=== PATIENT | male | born 1960 | race African-American/Black ===

== ENCOUNTER 2016-06-24 10:32 | Emergency (ER) | payer SELFPAY ==
[2016-06-24] MEDS ORDERED: ASPIRIN 81 MG TABLET, CHEWABLE PO ONE (10:50)
--- NOTE | 2016-06-24 10:50 | ER Document Report ---
ED Medical Screen (RME) - General Stated Complaint: NAUSEA/VOMITING Mode of Arrival: Medic Information source: Patient Notes: here via EMS c/o headache, nausea/vomiting x2 days, also endorses cough, lower diaphragm, and muscle aches due to coughing. he states he has chest pain, SOB also. Family members have been sick also. EMS reports fever 100.7, given tylenol 975 mg PO by EMS Hx of HTN, has not had meds in 1 month, without PMD BP by EMS 194/110 Smoker 1 PPD I have greeted and performed a rapid initial assessment of this patient. A comprehensive ED assessment and evaluation of the patient, analysis of test results and completion of the medical decision making process will be conducted by additional ED providers. TRAVEL OUTSIDE OF THE [place] IN LAST 30 DAYS: No - Related Data Allergies/Adverse Reactions: No Known Allergies Allergy (Unverified 04/01/11 08:15) Past Medical History - Past Medical History Cardiac Medical History: Reports: Hx Hypertension Pulmonary Medical History: Reports: Hx Asthma Musculoskeltal Medical History: Reports Hx Arthritis Traumatic Medical History: Reports: Hx Fractures - R leg, R foot Past Surgical History: Denies: Hx Pacemaker - Immunizations Hx Diphtheria, Pertussis, Tetanus Vaccination: Yes Physical Exam - Vital signs Vitals: Temp Pulse Resp BP Pulse Ox 99.1 F 114 H 18 207/112 H 93 06/24/16 10:43 06/24/16 10:43 06/24/16 10:43 06/24/16 10:43 06/24/16 10:43 - Notes Notes: Lungs CTAb CV: tachycardic rate without murmur Course - Vital Signs Vital signs: Temp Pulse Resp BP Pulse Ox 99.1 F 114 H 18 207/112 H 93 06/24/16 10:43 06/24/16 10:43 06/24/16 10:43 06/24/16 10:43 06/24/16 10:43
[2016-06-24] MEDS ORDERED: AMLODIPINE BESYLATE 5 MG TABLET PO ONE (11:30)
[2016-06-24] MEDS ORDERED: NORMAL SALINE 1000 ML 1,000 ML IV ONE ×2 (11:30)
[2016-06-24] MEDS ORDERED: IPRATROPIUM/ALBUTEROL 0.5-2.5 MG/3 ML AMPUL NEB ONE (11:30)
[2016-06-24 12:08] LABS: HEMATOCRIT 41.4 % (37.9-51.0); HGB HCT DIFFERENCE 0.6; MEAN CORPUSCULAR HEMOGLOBIN 28.8 pg (27.0-33.4); MEAN CORPUSCULAR HGB CONC 33.7 g/dL (32.0-36.0); MEAN CORPUSCULAR VOLUME 85 fl (80-97); RED BLOOD COUNT 4.85 10^6/uL (4.35-5.55); RED CELL DISTRIBUTION WIDTH 14.3 % (11.5-14.0); WHITE BLOOD COUNT 3.9 10^3/uL (4.0-10.5)
[2016-06-24 12:30] LABS: ALANINE AMINOTRANSFERASE 28 U/L (21-72); ALKALINE PHOSPHATASE 75 U/L (38-126); ANION GAP 12 (5-19); ASPARTATE AMINO TRANSFERASE 54 U/L (17-59); BILIRUBIN,TOTAL 0.4 mg/dL (0.2-1.3); BLOOD UREA NITROGEN 11 mg/dL (7-20); CALCIUM 9.3 mg/dL (8.4-10.2); CARBON DIOXIDE 25 mmol/L (22-30); CHLORIDE 101 mmol/L (98-107); GLUCOSE 98 mg/dL (75-110); LIPASE 85.9 U/L (23-300); MAGNESIUM 1.6 mg/dL (1.6-2.3); POTASSIUM 3.8 mmol/L (3.6-5.0); SODIUM 137.6 mmol/L (137-145); TOTAL PROTEIN 7.1 g/dL (6.3-8.2)
[2016-06-24 12:39] LABS: ANISOCYTOSIS SLIGHT; BAND NEUTROPHILS % (MANUAL) 1 % (3-5); BASOPHILS % (MANUAL) 0 % (0-2); EOSINOPHILS % (MANUAL) 0 % (0-6); LYMPHOCYTES % (MANUAL) 5 % (13-45); TOTAL CELLS COUNTED 100
[2016-06-24 12:42] LABS: CREATINE KINASE MB 6.06 ng/mL (<4.55)
[2016-06-24 12:45] LABS: TROPONIN I 0.156 ng/mL
[2016-06-24 12:53] LABS: CREATINE KINASE 3872 U/L (55-170)
[2016-06-24] MEDS ORDERED: ENOXAPARIN SODIUM INJ 80 MG/0.8 ML DISP.SYRIN SUBCUT SCH (13:45)
[2016-06-24 13:49] LABS: PROTHROMBIN TIME 14.2 SEC (11.4-15.4)
--- NOTE | 2016-06-24 14:40 | ER Document Report ---
ED General - General Chief Complaint: Pain All Over Stated Complaint: NAUSEA/VOMITING Mode of Arrival: Medic TRAVEL OUTSIDE OF THE [place] IN LAST 30 DAYS: No - HPI Patient complains to provider of: nausea vomiting funny feeling in the chest Notes: Patient coming in with a 2 day history of nausea vomiting 24 hours of a funny feeling in his chest. Patient has a history of hypertension that is uncontrolled noncompliant with medication patient states has not had any medications in the last 2 days. Patient denies any sick contacts patient denies recent antibiotics. Patient states chest pain was substernal no radiation. Patient denies any diarrhea denies any trauma - Related Data Allergies/Adverse Reactions: No Known Allergies Allergy (Verified 06/24/16 10:45) Past Medical History - General Information source: Patient - Social History Smoking Status: Current Every Day Smoker Chew tobacco use (# tins/day): Yes Frequency of alcohol use: None Drug Abuse: None Family History: Reviewed & Not Pertinent Patient has suicidal ideation: No Patient has homicidal ideation: No - Past Medical History Cardiac Medical History: Reports: Hx Hypertension Pulmonary Medical History: Reports: Hx Asthma Renal/ Medical History: Denies: Hx Peritoneal Dialysis Musculoskeltal Medical History: Reports Hx Arthritis Traumatic Medical History: Reports: Hx Fractures - R leg, R foot Surgical Hx: Negative Past Surgical History: Denies: Hx Pacemaker - Immunizations Hx Diphtheria, Pertussis, Tetanus Vaccination: Yes Review of Systems - Review of Systems Constitutional: No symptoms reported EENT: No symptoms reported Cardiovascular: Chest pain Respiratory: No symptoms reported Gastrointestinal: Nausea, Vomiting Genitourinary: No symptoms reported Male Genitourinary: No symptoms reported Musculoskeletal: No symptoms reported Skin: No symptoms reported Hematologic/Lymphatic: No symptoms reported Neurological/Psychological: No symptoms reported -: Yes All other systems reviewed and negative Physical Exam - Vital signs Vitals: Temp Pulse Resp BP Pulse Ox 99.1 F 114 H 18 207/112 H 93 06/24/16 10:43 06/24/16 10:43 06/24/16 10:43 06/24/16 10:43 06/24/16 10:43 Interpretation: Normal - General General appearance: Appears well, Alert - HEENT Head: Normocephalic, Atraumatic Eyes: Normal Pupils: PERRL - Respiratory Respiratory status: No respiratory distress Chest status: Nontender Breath sounds: Normal Chest palpation: Normal - Cardiovascular Rhythm: Regular Heart sounds: Normal auscultation Murmur: No - Abdominal Inspection: Normal Distension: No distension Bowel sounds: Normal Tenderness: Nontender Organomegaly: No organomegaly - Back Back: Normal, Nontender - Extremities General upper extremity: Normal inspection, Nontender, Normal color, Normal ROM , Normal temperature General lower extremity: Normal inspection, Nontender, Normal color, Normal ROM , Normal temperature, Normal weight bearing. No: Jose Enrique's sign - Neurological Neuro grossly intact: Yes Cognition: Normal Orientation: AAOx4 [place] Coma Scale Eye Opening: Spontaneous [place] Coma Scale Verbal: Oriented [place] Coma Scale Motor: Obeys Commands Rina Coma Scale Total: 15 Speech: Normal Motor strength normal: LUE, RUE, LLE, RLE Sensory: Normal - Psychological Associated symptoms: Normal affect, Normal mood - Skin Skin Temperature: Warm Skin Moisture: Dry Skin Color: Normal Course - Re-evaluation Re-evalutation: 06/24/16 14:38 Patient's initial EKG does show some T-wave inversions and ST segment depression and V5 V6 lead 2 and aVF. After amlodipine and IV resuscitation patient's symptoms have improved heart rate has improved T-wave inversions to remain in 5-6 however he has now T-wave flattening in 2 and aVF. I discussed briefly with the hospitalist and our coating machine operator on-call Dr. GARCIA who agrees in transfer and the patient for an STEMI. Patient was given a weight-based dose of Lovenox. I did discuss with Dr. Carnes hospitalist and Dr. Schuster coating machine operator of [facility] and patient was placed on a list for transfer.. Waiting to hear back from [facility] 06/24/16 18:41 Discussed with coating machine operator divided. Patient was also accepted to their facility. Patient otherwise remained stable patient did have another episode chest pain repeat EKG still showed T-wave inversions no acute changes patient will continue with fluid resuscitation hypertension control and monitoring. Patient was given a dose of Lovenox. - Vital Signs Vital signs: Temp Pulse Resp BP Pulse Ox 98.4 F 107 H 23 H 177/101 H 92 06/24/16 13:09 06/24/16 13:09 06/24/16 15:49 06/24/16 15:49 06/24/16 15:01 - Laboratory Result Diagrams: 06/24/16 11:51 06/24/16 11:51 Laboratory results interpreted by me: 06/24/16 06/24/16 06/24/16 11:51 11:51 11:51 WBC 3.9 L RDW 14.3 H Seg Neuts % (Manual) 87 H Band Neutrophils % 1 L Lymphocytes % (Manual) 5 L Abs Lymphs (Manual) 0.3 L APTT Creatinine 1.40 H Est GFR (Non-Af Amer) 52 L Creatine Kinase 3872 H CK-MB (CK-2) 6.06 H Urine Blood 06/24/16 06/24/16 11:51 14:25 WBC RDW Seg Neuts % (Manual) Band Neutrophils % Lymphocytes % (Manual) Abs Lymphs (Manual) APTT 36.0 H Creatinine Est GFR (Non-Af Amer) Creatine Kinase CK-MB (CK-2) Urine Blood MODERATE H Critical Care Note - Critical Care Note Total time excluding time spent on procedures (mins): 35 Comments: Patient evaluated times for chest pain Discharge - Discharge Clinical Impression: NSTEMI (non-ST elevated myocardial infarction), Accelerated hypertension Condition: Good Disposition: [facility]
[2016-06-24] MEDS ORDERED: ENOXAPARIN SODIUM INJ 80 MG/0.8 ML DISP.SYRIN SUBCUT ONE (14:45)
[2016-06-24 15:01] LABS: APPEARANCE,URINE CLEAR; BILIRUBIN,URINE NEGATIVE (NEGATIVE); GLUCOSE, URINE NEGATIVE (NEGATIVE); KETONES,URINE NEGATIVE (NEGATIVE); LEUKOCYTE ESTERASE,URINE NEGATIVE (NEGATIVE); NITRITE,URINE NEGATIVE (NEGATIVE); PROTEIN,URINE NEGATIVE (NEGATIVE); UROBILINOGEN,URINE NEGATIVE mg/dL (<2.0)
[2016-06-24 15:14] LABS: URINE BARBITURATES SCREEN NEGATIVE; URINE METHADONE SCREEN NEGATIVE; URINE OPIATES LOW NEGATIVE; URINE PHENCYCLIDINE SCREEN NEGATIVE
[2016-06-24] MEDS ORDERED: NITROGLYCERIN 2% OINTMENT 1 GM PACKET TP ONE (17:03)
[2016-06-24] MEDS ORDERED: METOPROLOL TARTRATE 25 MG TABLET PO ONE (17:57)
[2016-06-24 19:26] VITALS: BP 198/98
--- NOTE | 2016-06-25 09:05 | EKG REPORT ---
SEVERITY:- ABNORMAL ECG - SINUS TACHYCARDIA REPOL ABNRM SUGGESTS ISCHEMIA, ANT-LAT LEADS : Confirmed by: Silverio Gracia MD 25-Jun-2016 09:05:13
--- NOTE | 2016-06-25 09:06 | EKG REPORT ---
SEVERITY:- ABNORMAL ECG - SINUS TACHYCARDIA LVH WITH SECONDARY REPOLARIZATION ABNORMALITY LA ABNORMALITY : Confirmed by: Silverio Gracia MD 25-Jun-2016 09:05:50
--- NOTE | 2016-06-25 09:07 | EKG REPORT ---
SEVERITY:- ABNORMAL ECG - SINUS TACHYCARDIA PROBABLE LEFT ATRIAL ABNORMALITY LVH WITH SECONDARY REPOLARIZATION ABNORMALITY : Confirmed by: Silverio Gracia MD 25-Jun-2016 09:06:03
== END 2016-06-24 19:03 | disposition short-term general hospital (02) ==
LOC: ER 10:32
DX: I21.4 Non-ST elevation (NSTEMI) myocardial infarction (principal); I10 Essential (primary) hypertension; Z91.14 Patient's other noncompliance with medication regimen; R07.89 Other chest pain; R11.2 Nausea with vomiting, unspecified; F17.200 Nicotine dependence, unspecified, uncomplicated; J45.909 Unspecified asthma, uncomplicated
CPT/HCPCS: 93005; 94640 ×2; 99291; 96372; 96360; 96361; 36415; 82553; 82550; 83690; 83735; 85025; 85610; 85730; 80053; 81001; 84484; 80307; 87804; 71010; 93010; J7030; J1650; J7620

== ENCOUNTER 2018-02-03 15:11 | Emergency (ER) | payer SELFPAY ==
[2018-02-03] MEDS ORDERED: ONDANSETRON 4 MG TAB.RAPDIS PO ONE (15:44)
[2018-02-03] MEDS ORDERED: CLONIDINE HCL 0.2 MG TABLET PO ONE (15:44)
--- NOTE | 2018-02-03 15:45 | ER Document Report ---
ED Medical Screen (RME) - General Chief Complaint: High Blood Pressure Stated Complaint: FEELING UNWELL Time Seen by Provider: 02/03/18 15:43 Mode of Arrival: Wheelchair Information source: Patient TRAVEL OUTSIDE OF THE [place] IN LAST 30 DAYS: No - HPI Patient complains to provider of: elevated BP Onset: Other - pt has been ouot of his BP meds for several months. Feels like his BP is up again - Related Data Allergies/Adverse Reactions: No Known Allergies Allergy (Verified 06/24/16 10:45) Past Medical History - Social History Chew tobacco use (# tins/day): No Frequency of alcohol use: None Drug Abuse: None - Past Medical History Cardiac Medical History: Reports: Hx Hypertension Pulmonary Medical History: Reports: Hx Asthma Renal/ Medical History: Denies: Hx Peritoneal Dialysis Musculoskeltal Medical History: Reports Hx Arthritis Traumatic Medical History: Reports: Hx Fractures - R leg, R foot Past Surgical History: Denies: Hx Pacemaker - Immunizations Hx Diphtheria, Pertussis, Tetanus Vaccination: Yes Physical Exam - Vital signs Vitals: Temp Pulse Resp BP Pulse Ox 98.9 F 76 16 209/118 H 97 02/03/18 15:25 02/03/18 15:25 02/03/18 15:25 02/03/18 15:25 02/03/18 15:25 Course - Vital Signs Vital signs: Temp Pulse Resp BP Pulse Ox 98.9 F 76 16 209/118 H 97 02/03/18 15:25 02/03/18 15:25 02/03/18 15:25 02/03/18 15:25 02/03/18 15:25
[2018-02-03 15:54] LABS: ABSOLUTE EOSINOPHILS # (AUTO) 0.2 10^3/uL (0.0-0.6); ABSOLUTE LYMPHOCYTES (AUTO) 1.5 10^3/uL (0.5-4.7); ABSOLUTE MONOCYTES (AUTO) 0.4 10^3/uL (0.1-1.4); ABSOLUTE NEUT (AUTO) 2.3 10^3/uL (1.7-8.2); BASOPHILS % (AUTO) 0.7 % (0-2); EOSINOPHILS % (AUTO) 5.2 % (0-6); HEMATOCRIT 43.2 % (37.9-51.0); HEMOGLOBIN 14.8 g/dL (13.5-17.0); LYMPHOCYTES % (AUTO) 32.6 % (13-45); MEAN CORPUSCULAR HEMOGLOBIN 29.6 pg (27.0-33.4); MEAN CORPUSCULAR HGB CONC 34.1 g/dL (32.0-36.0); MEAN CORPUSCULAR VOLUME 87 fl (80-97); MONOCYTES % (AUTO) 9.9 % (3-13); PLATELET COUNT 334 10^3/uL (150-450); RED BLOOD COUNT 4.98 10^6/uL (4.35-5.55); RED CELL DISTRIBUTION WIDTH 14.6 % (11.5-14.0); SEGMENTED NEUTROPHILS % (AUTO) 51.6 % (42-78); TOTAL CELLS COUNTED % (AUTO) 100 %; WHITE BLOOD COUNT 4.5 10^3/uL (4.0-10.5)
[2018-02-03 15:59] LABS: ALANINE AMINOTRANSFERASE 19 U/L (21-72); ALBUMIN 3.9 g/dL (3.5-5.0); ALKALINE PHOSPHATASE 88 U/L (38-126); ANION GAP 11 (5-19); ASPARTATE AMINO TRANSFERASE 17 U/L (17-59); BILIRUBIN,DIRECT 0.2 mg/dL (0.0-0.4); BILIRUBIN,TOTAL 0.4 mg/dL (0.2-1.3); BLOOD UREA NITROGEN 10 mg/dL (7-20); CALCIUM 9.3 mg/dL (8.4-10.2); CARBON DIOXIDE 27 mmol/L (22-30); CHLORIDE 102 mmol/L (98-107); GLUCOSE 104 mg/dL (75-110); POTASSIUM 4.4 mmol/L (3.6-5.0); SODIUM 139.6 mmol/L (137-145); TOTAL PROTEIN 7.2 g/dL (6.3-8.2)
--- NOTE | 2018-02-03 17:34 | ER Document Report ---
ED General - General Chief Complaint: High Blood Pressure Stated Complaint: FEELING UNWELL Time Seen by Provider: 02/03/18 15:43 Mode of Arrival: Wheelchair Information source: Patient Notes: 57-year-old male with past medical history including high blood pressure. Patient states he has not taken his blood pressure medications in greater than 3 months. He does not know what these medications were or where he received them. He does not know who his previous primary care physician was. Patient states this morning when he woke up he could not move his right arm or leg. He states he felt lightheaded. He states a mild frontal headache without blurry vision. He denies any neck pain, head trauma, chest pain, nausea, vomiting, or fevers. TRAVEL OUTSIDE OF THE [place] IN LAST 30 DAYS: No - HPI Onset: Other - See above Onset/Duration: Constant Quality of pain: Achy Severity: Moderate Pain Level: Denies Associated symptoms: Other - See above Exacerbated by: Denies Relieved by: Denies Similar symptoms previously: No Recently seen / treated by doctor: No - Related Data Allergies/Adverse Reactions: No Known Allergies Allergy (Verified 06/24/16 10:45) Past Medical History - General Information source: Patient - Social History Smoking Status: Current Every Day Smoker Chew tobacco use (# tins/day): No Frequency of alcohol use: None Drug Abuse: None Family History: Reviewed & Not Pertinent Patient has suicidal ideation: No Patient has homicidal ideation: No - Past Medical History Cardiac Medical History: Reports: Hx Hypertension Pulmonary Medical History: Reports: Hx Asthma Renal/ Medical History: Denies: Hx Peritoneal Dialysis Musculoskeletal Medical History: Reports Hx Arthritis Traumatic Medical History: Reports: Hx Fractures - R leg, R foot Past Surgical History: Denies: Hx Pacemaker - Immunizations Hx Diphtheria, Pertussis, Tetanus Vaccination: Yes Review of Systems - Review of Systems Constitutional: denies: Fever EENT: denies: Eye discharge, Nose discharge Cardiovascular: denies: Chest pain, Palpitations Respiratory: denies: Short of breath Gastrointestinal: denies: Vomiting Genitourinary: denies: Dysuria Musculoskeletal: denies: Leg swelling Skin: Other - no hives. denies: Rash Neurological/Psychological: Other - no slurred speech -: Yes All other systems reviewed and negative Physical Exam - Vital signs Vitals: Temp Pulse Resp BP Pulse Ox 98.9 F 76 16 209/118 H 97 02/03/18 15:25 02/03/18 15:25 02/03/18 15:25 02/03/18 15:25 02/03/18 15:25 Notes: Reviewed vital signs and nursing note as charted by RN. CONSTITUTIONAL: Alert and oriented and responds appropriately to questions. Well -appearing; well-nourished HEAD: Normocephalic; atraumatic EYES: PERRL; Conjunctivae clear, sclerae non-icteric ENT: Normal nose; no rhinorrhea; moist mucous membranes; pharynx without lesions noted NECK: Supple without meningismus; non-tender; no carotid bruits; no cervical lymphadenopathy, no masses CARD: Regular rate and rhythm; no murmurs, no clicks, no rubs, no gallops; symmetric distal pulses RESP: Normal chest excursion without splinting or tachypnea; breath sounds clear and equal bilaterally ABD/GI: Normal bowel sounds; non-distended; soft, non-tender; no palpable organomegaly or masses BACK: The back appears normal and is non-tender to palpation EXT: Normal ROM in all joints; non-tender to palpation; no cyanosis, no effusions, no edema SKIN: Normal color for age and race; warm; dry; good turgor; no acute lesions noted NEURO: CN II through XII are intact. Minimal slurred speech. No facial droop. NIH score is recorded. Patient has some minimal drift of the right arm and is only able to lift his right leg for very minimal amount off the bed PSYCH: The patient's mood and manner are appropriate. Grooming and personal hygiene are appropriate. Course - Re-evaluation Re-evalutation: In triage, patient had basic labs ordered and was given antihypertensive medications. I have added on a stat CT scan of the head, EKG, and a bandage on the troponin. Given the time onset of symptomatology, I do not believe that the patient is a TPA candidate. Initial labs as recorded. 02/03/18 17:53 EKG shows a heart of 68, normal sinus rhythm, normal axis, LVH with inverted T waves in leads I, 2, aVL, V4 through V6. Old EKG from 2017 show similar findings. 02/03/18 18:21 [address] have spoken [address] Pandey the interventional neurologist. He states he would like a CTA and if it does not show a large vessel occlusion, the patient can be admitted to the hospitalist service. - Vital Signs Vital signs: Temp Pulse Resp BP Pulse Ox 98.9 F 67 16 176/88 H 99 02/03/18 15:25 02/03/18 17:58 02/03/18 17:58 02/03/18 17:58 02/03/18 17:58 - Laboratory Result Diagrams: 02/03/18 14:33 02/03/18 14:33 Laboratory results interpreted by me: 02/03/18 02/03/18 14:33 14:33 RDW 14.6 H ALT 19 L Critical Care Note - Critical Care Note Total time excluding time spent on procedures (mins): 45 Discharge - Discharge Clinical Impression: Right sided weakness, Hypertensive emergency Condition: Serious
--- NOTE | 2018-02-03 17:49 | RADIOLOGY REPORT (SQ) ---
EXAM DESCRIPTION: CT HEAD WITHOUT COMPLETED DATE/TIME: 02/03/2018 5:38 pm REASON FOR STUDY: Right sided weakness headache COMPARISON: 04/24/2012 TECHNIQUE: Axial images acquired through the brain without intravenous contrast. Images reviewed wi th bone, brain and subdural windows. Images stored on PACS. All CT scanners at this facility use dose modulation, iterative reconstruction, and/or weight based d osing when appropriate to reduce radiation dose to as low as reasonably achievable (ALARA). [facility]: Dose Right [facility]: CareDose [facility]: Dose Right [facility]: Teradose 4D [facility]: Smart Tryouts RADIATION DOSE: CT Rad equipment meets quality standard of care and radiation dose reduction techniq ues were employed. CTDIvol: 53.2 mGy. DLP: 1017 mGy-cm. mGy. LIMITATIONS: None. FINDINGS: VENTRICLES: Age-appropriate. CEREBRUM: No masses. No hemorrhage. No midline shift. Areas of low density in the white matter mos t likely due to chronic micro-vascular ischemic change. No evidence for acute infarction. CEREBELLUM: No masses. No hemorrhage. No alteration of density. No evidence for acute infarction. EXTRAAXIAL SPACES: Mild age-related involutional change. No fluid collections. No masses. ORBITS AND GLOBE: No intra- or extraconal masses. Normal contour of globe without masses. CALVARIUM: No fracture. PARANASAL SINUSES: No fluid or mucosal thickening. SOFT TISSUES: No mass or hematoma. OTHER: No other significant finding. IMPRESSION: No acute intracranial findings. EVIDENCE OF ACUTE STROKE: NO. TECHNICAL DOCUMENTATION: JOB ID: [id number] [place]-72 Quality ID # 436: Final reports with documentation of one or more dose reduction techniques (e.g., Au tomated exposure control, adjustment of the mA and/or kV according to patient size, use of iterative reconstruction technique) 2010 [employer]- All Rights Reserved Reading location - IP/workstation name: [email or web address]
[2018-02-03] MEDS ORDERED: ASPIRIN 325 MG TABLET PO ONE (18:21)
--- NOTE | 2018-02-03 20:06 | RADIOLOGY REPORT (SQ) ---
EXAM DESCRIPTION: CTA HEAD COMPLETED DATE/TIME: 02/03/2018 7:29 pm REASON FOR STUDY: 12, eval right sided weakness COMPARISON: None. TECHNIQUE: Post IV contrast scanning, thin section axial imaging through the brain to evaluate the a rterial structures. Source and MIP images are saved and reviewed on PACS. Advanced 3D imaging as volume-rendering, MIPs, SSD performed? yes All CT scanners at this facility use dose modulation, iterative reconstruction, and/or weight based d osing when appropriate to reduce radiation dose to as low as reasonably achievable (ALARA). [facility]: Dose Right [facility]: CareDose [facility]: Dose Right [facility]: Teradose 4D [facility]: Resonergy CONTRAST TYPE AND DOSE: contrast/concentration: Isovue 350.00 mg/ml; Total Contrast Delivered: 70.0 ml; Total Saline Delivered: 75.0 ml RENAL FUNCTION: GFR > 60. LIMITATIONS: None. FINDINGS: [place]: The anterior, middle, posterior cerebral arteries are all patent. No ev idence of aneurysm. Absent right A1 segment. POSTERIOR CIRCULATION: The distal vertebral arteries are patent as is the basilar artery. Right samir nant vertebrobasilar system. No aneurysm. BRAIN: No gross enhancing lesions as visualized. The superior cerebral hemispheres are not included in the field of view. BONES: Intact as visualized. SINUSES: Scattered mucosal thickening. OTHER: No other significant finding. IMPRESSION: The anterior, middle, posterior cerebral arteries are all patent. No evidence of aneury sm. Absent right A1 segment.The distal vertebral arteries are patent as is the basilar artery. Righ t dominant vertebrobasilar system. TECHNICAL DOCUMENTATION: JOB ID: [id number] [place]-72 Quality ID # 436: Final reports with documentation of one or more dose reduction techniques (e.g., Au tomated exposure control, adjustment of the mA and/or kV according to patient size, use of iterative reconstruction technique) 2010 [employer]- All Rights Reserved Reading location - IP/workstation name: [email or web address]
--- NOTE | 2018-02-03 20:07 | RADIOLOGY REPORT (SQ) ---
EXAM DESCRIPTION: CTA NECK COMPLETED DATE/TIME: 02/03/2018 7:29 pm REASON FOR STUDY: 14; right sided weakness COMPARISON: None. TECHNIQUE: Axial dynamic scanning technique with dynamic contrast enhancement through the extra-cinder crane operator nial carotid and vertebral arteries. Multiplanar reconstruction. 3-D MIPS and Volume-rendered imag es acquired at the workstation and saved to PACS. Images are reviewed in soft tissue, bone, lung w indows. All CT scanners at this facility use dose modulation, iterative reconstruction, and/or weight based d osing when appropriate to reduce radiation dose to as low as reasonably achievable (ALARA). [facility]: Dose Right [facility]: CareDose [facility]: Dose Right [facility]: Teradose 4D [facility]: [employer]rape CONTRAST TYPE AND DOSE: 100 mL Omnipaque 350- low osmolar. RENAL FUNCTION: GFR > 60. LIMITATIONS: None. FINDINGS: AORTIC ARCH: Normal three-vessel origin. Bilateral subclavian arteries are patent. No d issection. RIGHT CAROTIDS: Patent common, internal and external carotid arteries without suggestion of significa nt stenosis or irregular plaque. No dissection. RIGHT VERTEBRAL: Patent. No dissection. LEFT CAROTIDS: Patent common, internal and external carotid arteries without suggestion of significan t stenosis or irregular plaque. No dissection. LEFT VERTEBRAL: Patent. No dissection. OTHER: No other significant finding. OTHER: 3-D reconstructions confirm findings. IMPRESSION: No dissection or significant stenosis. COMMENT: Quality ID #[id number]: Measurements of distal internal carotid diameter were used as the denomina tor for stenosis measurement. TECHNICAL DOCUMENTATION: JOB ID: [id number] [place]-72 Quality ID # 436: Final reports with documentation of one or more dose reduction techniques (e.g., Au tomated exposure control, adjustment of the mA and/or kV according to patient size, use of iterative reconstruction technique) 2010 [employer]- All Rights Reserved Reading location - IP/workstation name: [email or web address]
--- NOTE | 2018-02-03 22:37 | EKG REPORT ---
SEVERITY:- ABNORMAL ECG - SINUS RHYTHM ATRIAL PREMATURE COMPLEX FIRST DEGREE AV BLOCK LVH WITH SECONDARY REPOLARIZATION ABNORMALITY : Confirmed by: Tricia Velez MD 03-Feb-2018 22:36:49
[2018-02-04 00:03] VITALS: BP 166/111
== END 2018-02-04 | disposition short-term general hospital (02) ==
LOC: ER 15:11
DX: I16.1 Hypertensive emergency (principal); I11.9 Hypertensive heart disease without heart failure; T50.906A Underdosing of unspecified drugs, medicaments and biological substances, initial encounter; Z91.128 Patient's intentional underdosing of medication regimen for other reason; Z91.14 Patient's other noncompliance with medication regimen; R53.1 Weakness; R47.81 Slurred speech; R51 Headache; R42 Dizziness and giddiness; J45.909 Unspecified asthma, uncomplicated; F17.200 Nicotine dependence, unspecified, uncomplicated
CPT/HCPCS: 93005; 99291; 36415; 85025; 80053; 84484; 70450; 70496; 70498; 93010; S0119

== ENCOUNTER → 2018-11-10 | Outpatient (CLI) | payer MEDICAID ==
--- NOTE | 2018-11-10 12:47 | RADIOLOGY REPORT (SQ) ---
EXAM DESCRIPTION: U/S LTD DUPLEX ART/CHARISSA FLOW COMPLETED DATE/TIME: 11/10/2018 11:15 am REASON FOR STUDY: ESSENTIAL HTN I16.0 HYPERTENSIVE URGENCY COMPARISON: None. TECHNIQUE: Realtime and static grayscale images acquired. Selected color Doppler, velocities and spe ctral images recorded. LIMITATIONS: Unable to visualize the renal artery origins off the aorta reliably FINDINGS: RIGHT KIDNEY: RENAL ARTERY VELOCITIES: At the hilum, 147 cm/sec. Segmental artery velocity 53 cm/sec. RENAL VEIN: Color doppler flow present, patent. VELOCITY RATIO: 0.8. Blunted systolic peak of the spectral waveforms. Proximal right renal artery s tenosis could not be excluded. Consider follow-up MRA or CTA of the renal arteries KIDNEY: 10.5 cm in length with 2.6 cm upper pole cortical cyst. Mild increased echogenicity. No c ortical thinning. No hydronephrosis LEFT KIDNEY: RENAL ARTERY VELOCITIES: Off the aorta 73 cm/sec. Segmental artery velocity 67 cm/sec. RENAL VEIN: Color doppler flow present, patent. VELOCITY RATIO: 0.5. Normal waveforms. KIDNEY: 10.4 cm in length with a 1 cm cyst upper pole kidney, 2 cm cyst left mid pole kidney. Mild increased echogenicity. No cortical thinning. No hydronephrosis. BLADDER: Normal. OTHER: No other significant finding. IMPRESSION: Limited visualization of the right proximal renal artery. There is some blunting of the systolic peak on spectral tracings within the right renal artery at the hilum and segmental right re nal arteries. Renal artery stenosis more proximally may be present. Follow-up MRA or CTA is recomme nded No gross sonographic evidence for left renal artery stenosis COMMENT: NORMAL RENAL ARTERY/AORTA VELOCITY RATIO IS LESS THAN OR EQUAL TO 3.5. TECHNICAL DOCUMENTATION: JOB ID: [id number] [employer]- All Rights Reserved Reading location - IP/workstation name: [email or web address]
== END ==
LOC: RAD 09:57
PROVIDERS: ATTEND Internal Medicine Cardiovascular Disease
DX: I16.0 Hypertensive urgency (principal)
CPT/HCPCS: 93976

== ENCOUNTER → 2019-02-15 | Outpatient (CLI) | payer MEDICAID ==
[2019-02-15 12:21] LABS: ALBUMIN 4.5 g/dL (3.5-5.0); ALKALINE PHOSPHATASE 100 U/L (38-126); ANION GAP 11 (5-19); ASPARTATE AMINO TRANSFERASE 20 U/L (17-59); BILIRUBIN,DIRECT 0.2 mg/dL (0.0-0.4); BILIRUBIN,TOTAL 0.4 mg/dL (0.2-1.3); BLOOD UREA NITROGEN 13 mg/dL (7-20); CALCIUM 10.1 mg/dL (8.4-10.2); CARBON DIOXIDE 30 mmol/L (22-30); CHLORIDE 100 mmol/L (98-107); CHOLESTEROL 144.04 mg/dL (0-200); GLUCOSE 125 mg/dL (75-110); TOTAL PROTEIN 8.3 g/dL (6.3-8.2); TRIGLYCERIDES 116 mg/dL (<150)
[2019-02-15 12:31] LABS: DIRECT LDL 98 mg/dL (<100)
[2019-02-15 17:04] LABS: HEMATOCRIT 48.4 % (37.9-51.0); HEMOGLOBIN 16.3 g/dL (13.5-17.0); MEAN CORPUSCULAR HEMOGLOBIN 29.1 pg (27.0-33.4); MEAN CORPUSCULAR HGB CONC 33.7 g/dL (32.0-36.0); MEAN CORPUSCULAR VOLUME 87 fl (80-97); PLATELET COUNT 335 10^3/uL (150-450); RED CELL DISTRIBUTION WIDTH 14.7 % (11.5-14.0)
== END ==
LOC: OD 11:27
PROVIDERS: ATTEND Physician Assistant
DX: I10 Essential (primary) hypertension (principal); R07.9 Chest pain, unspecified
CPT/HCPCS: 36415; 80048; 80061; 80076; 83735; 85025; 85027

== ENCOUNTER 2019-03-06 14:08 | Emergency (ER) | payer MEDICAID ==
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
[2019-03-06 15:23] LABS: ABSOLUTE EOSINOPHILS # (AUTO) 0.2 10^3/uL (0.0-0.6); ABSOLUTE LYMPHOCYTES (AUTO) 1.1 10^3/uL (0.5-4.7); ABSOLUTE MONOCYTES (AUTO) 0.2 10^3/uL (0.1-1.4); ABSOLUTE NEUT (AUTO) 5.4 10^3/uL (1.7-8.2); BASOPHILS % (AUTO) 0.6 % (0-2); EOSINOPHILS % (AUTO) 2.2 % (0-6); HEMATOCRIT 44.3 % (37.9-51.0); HEMOGLOBIN 15.2 g/dL (13.5-17.0); LYMPHOCYTES % (AUTO) 16.1 % (13-45); MEAN CORPUSCULAR HEMOGLOBIN 29.8 pg (27.0-33.4); MEAN CORPUSCULAR HGB CONC 34.2 g/dL (32.0-36.0); MEAN CORPUSCULAR VOLUME 87 fl (80-97); PLATELET COUNT 409 10^3/uL (150-450); RED BLOOD COUNT 5.09 10^6/uL (4.35-5.55); RED CELL DISTRIBUTION WIDTH 14.6 % (11.5-14.0); SEGMENTED NEUTROPHILS % (AUTO) 78.1 % (42-78); TOTAL CELLS COUNTED % (AUTO) 100 %
[2019-03-06 15:42] LABS: APPEARANCE,URINE CLEAR; BILIRUBIN,URINE NEGATIVE (NEGATIVE); COLOR,URINE YELLOW; GLUCOSE, URINE NEGATIVE (NEGATIVE); KETONES,URINE NEGATIVE (NEGATIVE); LEUKOCYTE ESTERASE,URINE NEGATIVE (NEGATIVE); NITRITE,URINE NEGATIVE (NEGATIVE); PROTEIN,URINE 30 mg/dL (NEGATIVE); URINE SPECIFIC GRAVITY 1.017
[2019-03-06 15:49] LABS: ALBUMIN 4.4 g/dL (3.5-5.0); ALKALINE PHOSPHATASE 130 U/L (38-126); ANION GAP 10 (5-19); ASPARTATE AMINO TRANSFERASE 24 U/L (17-59); BILIRUBIN,DIRECT 0.2 mg/dL (0.0-0.4); BILIRUBIN,TOTAL 0.4 mg/dL (0.2-1.3); BLOOD UREA NITROGEN 15 mg/dL (7-20); CALCIUM 9.7 mg/dL (8.4-10.2); CARBON DIOXIDE 28 mmol/L (22-30); CHLORIDE 102 mmol/L (98-107); CREATINE KINASE 347 U/L (55-170); GLUCOSE 106 mg/dL (75-110); POTASSIUM 3.9 mmol/L (3.6-5.0); TOTAL PROTEIN 8.7 g/dL (6.3-8.2)
--- NOTE | 2019-03-06 15:59 | RADIOLOGY REPORT (SQ) ---
EXAM DESCRIPTION: CHEST SINGLE VIEW COMPLETED DATE/TIME: 03/06/2019 3:29 pm REASON FOR STUDY: bed 2 db COMPARISON: AP view of the chest from 06/19/2011. EXAM PARAMETERS: NUMBER OF VIEWS: One view. TECHNIQUE: Single frontal radiographic view of the chest acquired. RADIATION DOSE: NA LIMITATIONS: None. FINDINGS: LUNGS AND PLEURA: No consolidation, pleural effusion or pneumothorax. MEDIASTINUM AND HILAR STRUCTURES: No mediastinal hilar contour abnormality. HEART AND VASCULAR STRUCTURES: The cardiac silhouette and pulmonary vasculature are within normal cota its. BONES: No acute findings. HARDWARE: None in the chest. OTHER: No other finding. IMPRESSION: No acute cardiopulmonary process. TECHNICAL DOCUMENTATION: JOB ID: [id number] [employer]- All Rights Reserved Reading location - IP/workstation name: [email or web address]
[2019-03-06 16:01] LABS: CREATINE KINASE MB 2.65 ng/mL (<4.55); TROPONIN I 0.026 ng/mL
[2019-03-06] MEDS ORDERED: METHYLPREDNISOLONE INJ 125 MG/2 ML SDV IV ONE (16:07)
[2019-03-06] MEDS ORDERED: IPRATROPIUM/ALBUTEROL 0.5-2.5 MG/3 ML AMPUL NEB ONE (16:07)
--- NOTE | 2019-03-06 16:16 | EKG REPORT ---
SEVERITY:- ABNORMAL ECG - SINUS RHYTHM VENTRICULAR PREMATURE COMPLEX FIRST DEGREE AV BLOCK REPOL ABNRM SUGGESTS ISCHEMIA, LATERAL LEADS : Confirmed by: Tricia Velez MD 06-Mar-2019 16:15:43
[2019-03-06] MEDS ORDERED: NORMAL SALINE 1000 ML 1,000 ML IV ONE (16:42)
[2019-03-06] MEDS ORDERED: FAMOTIDINE INJ/PF 20 MG/2 ML SDV IV ONE (16:44)
[2019-03-06] MEDS ORDERED: DIPHENHYDRAMINE HCL 50 MG/ML VIAL IV ONE (16:44)
[2019-03-06] MEDS ORDERED: HYDRALAZINE HCL INJ/PF 20 MG/1 ML SDV IV ONE (17:01)
[2019-03-06] MEDS ORDERED: HYDRALAZINE HCL 10 MG TABLET PO ONE (17:42)
[2019-03-06 18:02] VITALS: BP 182/107
== END 2019-03-06 18:10 | disposition left against medical advice (07) ==
LOC: ER 14:08
DX: R06.03 Acute respiratory distress (principal); R05 Cough; T65.891A Toxic effect of other specified substances, accidental (unintentional), initial encounter; Y92.009 Unspecified place in unspecified non-institutional (private) residence as the place of occurrence of the external cause; F17.210 Nicotine dependence, cigarettes, uncomplicated; I10 Essential (primary) hypertension
CPT/HCPCS: 93005; 36415; 82553; 82550; 85025; 80053; 81001; 84484; 71045; 93010; J3490; J2930; J7620

== ENCOUNTER 2019-09-06 01:21 | Emergency (ER) | payer MEDICAID ==
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
[2019-09-06 01:46] LABS: APPEARANCE,URINE CLEAR; BILIRUBIN,URINE NEGATIVE (NEGATIVE); COLOR,URINE COLORLESS; GLUCOSE, URINE NEGATIVE (NEGATIVE); KETONES,URINE NEGATIVE (NEGATIVE); PROTEIN,URINE NEGATIVE (NEGATIVE); URINE SPECIFIC GRAVITY 1.001; UROBILINOGEN,URINE NEGATIVE mg/dL (<2.0)
[2019-09-06 01:53] LABS: ABSOLUTE BASOPHILS # (AUTO) 0.1 10^3/uL (0.0-0.2); ABSOLUTE EOSINOPHILS # (AUTO) 0.4 10^3/uL (0.0-0.6); ABSOLUTE LYMPHOCYTES (AUTO) 1.4 10^3/uL (0.5-4.7); ABSOLUTE MONOCYTES (AUTO) 0.4 10^3/uL (0.1-1.4); ABSOLUTE NEUT (AUTO) 3.4 10^3/uL (1.7-8.2); ALKALINE PHOSPHATASE 117 U/L (38-126); ANION GAP 6 (5-19); ASPARTATE AMINO TRANSFERASE 18 U/L (17-59); BASOPHILS % (AUTO) 1.1 % (0-2); BILIRUBIN,TOTAL 0.3 mg/dL (0.2-1.3); BLOOD UREA NITROGEN 10 mg/dL (7-20); CALCIUM 9.3 mg/dL (8.4-10.2); CARBON DIOXIDE 28 mmol/L (22-30); CHLORIDE 101 mmol/L (98-107); CREATINE KINASE 181 U/L (55-170); EOSINOPHILS % (AUTO) 6.4 % (0-6); GLUCOSE 112 mg/dL (75-110); HEMATOCRIT 41.8 % (37.9-51.0); HEMOGLOBIN 14.7 g/dL (13.5-17.0); LYMPHOCYTES % (AUTO) 24.9 % (13-45); MEAN CORPUSCULAR HEMOGLOBIN 30.1 pg (27.0-33.4); MEAN CORPUSCULAR HGB CONC 35.1 g/dL (32.0-36.0); MEAN CORPUSCULAR VOLUME 86 fl (80-97); MONOCYTES % (AUTO) 6.9 % (3-13); PLATELET COUNT 314 10^3/uL (150-450); POTASSIUM 3.8 mmol/L (3.6-5.0); RED BLOOD COUNT 4.87 10^6/uL (4.35-5.55); RED CELL DISTRIBUTION WIDTH 14.6 % (11.5-14.0); SEGMENTED NEUTROPHILS % (AUTO) 60.7 % (42-78); TOTAL CELLS COUNTED % (AUTO) 100 %; TOTAL PROTEIN 7.2 g/dL (6.3-8.2); WHITE BLOOD COUNT 5.6 10^3/uL (4.0-10.5)
[2019-09-06 02:03] LABS: URINE AMPHETAMINES SCREEN NEGATIVE; URINE BARBITURATES SCREEN NEGATIVE; URINE BENZODIAZEPINES SCREEN NEGATIVE; URINE COCAINE SCREEN NEGATIVE; URINE MARIJUANA (THC) SCREEN NEGATIVE; URINE METHADONE SCREEN NEGATIVE; URINE PHENCYCLIDINE SCREEN NEGATIVE
[2019-09-06 02:17] LABS: CREATINE KINASE MB 2.06 ng/mL (<4.55)
[2019-09-06 02:19] LABS: TROPONIN I 0.05 ng/mL
--- NOTE | 2019-09-06 02:34 | RADIOLOGY REPORT (SQ) ---
EXAM DESCRIPTION: XR CHEST 1 VIEW COMPLETED DATE/TME: 09/06/2019 01:36 CLINICAL HISTORY: 59 years, Male, Chest pain COMPARISON: 03/06/2019 chest NUMBER OF VIEWS: 1 TECHNIQUE: Portable chest LIMITATIONS: None. FINDINGS: The heart size is normal. Lungs are clear. No pneumothorax IMPRESSION: Negative chest copyright 2010 [employer]- All Rights Reserved
[2019-09-06] MEDS ORDERED: NITROGLYCERIN 2% OINTMENT 1 GM PACKET TP ONE (03:48)
[2019-09-06] MEDS ORDERED: CLONIDINE HCL 0.2 MG TABLET PO ONE (03:50)
[2019-09-06] MEDS ORDERED: LABETALOL HCL INJ 20 MG/4 ML DISP.SYRIN IV ONE (04:28)
[2019-09-06 06:54] VITALS: BP 157/101
--- NOTE | 2019-09-06 06:54 | ER Document Report ---
Doctor's Note Notes: 09/06/19 06:59 This 59-year-old male patient comes emergency room early this morning complaining of chest pain. He was found to have extremely high blood pressure. He was given labetalol 20 mg IV, Catapres 0.2 mg p.o., and nitroglycerin paste 1 g topically. His blood pressure came down and his pain resolved. He had an initial and repeat troponin that showed a doubling, that did not quite come up to the positive range. I was told by the nurse that he was leaving AGAINST MEDICAL ADVICE and was typed up to go. Since he was still here in the facility, I ordered an additional troponin to see if the levels continue to rise. I went and spoke with the patient and confirmed that he was leaving AGAINST MEDICAL ADVICE and did not want the third troponin done. I reviewed some old records which showed the patient had a non-STEMI on 06/24/2016 and was transferred to [facility]. He reports nothing was done, so I susp ect the decision to medically manage his blood pressure and coronary artery disease was made. Looking at pharmacy records, I found that his last pressure medication prescription for hydralazine was filled in early June 2019. The patient states that his primary care provider had told him to stop taking all the medicines he was on, as he did not need to be on any more medication. I find that somewhat difficult to believe given his history. I did get him to promise to go see his primary care provider today. He does have the nitroglycerin patch on, his blood pressure is 157/101. He was warned about the risk of further heart damage, and possible if he did not see his doctor and start back on medications.
--- NOTE | 2019-09-06 22:57 | EKG REPORT ---
SEVERITY:- ABNORMAL ECG - SINUS RHYTHM FIRST DEGREE AV BLOCK PROBABLE LVH WITH SECONDARY REPOL ABNRM : Confirmed by: Alma Ratliff 06-Sep-2019 22:56:31
--- NOTE | 2019-09-06 22:57 | EKG REPORT ---
SEVERITY:- ABNORMAL ECG - SINUS RHYTHM FIRST DEGREE AV BLOCK PROBABLE LVH WITH SECONDARY REPOL ABNRM : Confirmed by: Alma Ratliff 06-Sep-2019 22:56:25
== END 2019-09-06 06:54 | disposition left against medical advice (07) ==
LOC: ER 01:21
DX: I16.0 Hypertensive urgency (principal); I10 Essential (primary) hypertension; R07.9 Chest pain, unspecified; T22.211A Burn of second degree of right forearm, initial encounter; X08.8XXA Exposure to other specified smoke, fire and flames, initial encounter; Y93.G3 Activity, cooking and baking; R79.89 Other specified abnormal findings of blood chemistry; I44.0 Atrioventricular block, first degree; I25.2 Old myocardial infarction; J45.909 Unspecified asthma, uncomplicated; F17.200 Nicotine dependence, unspecified, uncomplicated
CPT/HCPCS: 93005; 99285; 36415; 82553; 82550; 85025; 80053; 81001; 84484; 80307; 83880; 71045; 93010; J3490 ×3